=== PATIENT | male | born 1970 | race Two or more races ===

== ENCOUNTER 2024-04-01 21:52 | Inpatient (IN) | payer OTHER ==
[2024-04-01 22:51] VITALS: BMI 18.8
[2024-04-02] MEDS ORDERED: guaiFENesin 600 MG TABLET.ER (FP) PO PRN (00:48)
[2024-04-02] MEDS ORDERED: NALOXONE HCL 0.4 MG/ML VIAL IM PRN (00:48)
[2024-04-02] MEDS ORDERED: POLYETHYLENE GLYCOL (HEALTHYLAX) 3350 17 GM PACKET PO PRN (00:48)
[2024-04-02] MEDS ORDERED: NALOXONE (NARCAN) HCL 4 MG/0.1 ML SPRAY NS PRN (00:48)
[2024-04-02] MEDS ORDERED: IBUPROFEN 400 MG TABLET (FP) PO PRN (00:48)
[2024-04-02] MEDS ORDERED: MAG HYDROX/AL HYDROX/SIMETH 30 ML UNIT-DOSE CUP PO PRN (00:48)
[2024-04-02] MEDS ORDERED: NICOTINE POLACRILEX 2 MG GUM BUC PRN (00:48)
[2024-04-02] MEDS ORDERED: ONDANSETRON *ODT* 4 MG TABLET SL PRN (00:48)
[2024-04-02] MEDS ORDERED: BENZOCAINE/MENTHOL (CHLORASEPTIC ) LOZENGE MM PRN (00:48)
[2024-04-02] MEDS ORDERED: MAGNESIUM HYDROX 2400MG/30ML ORAL SUSPENSION 30 ML CUP PO PRN (00:48)
[2024-04-02] MEDS ORDERED: BENZONATATE 200 MG CAPSULE PO PRN (00:48)
[2024-04-02] MEDS ORDERED: LOPERAMIDE HCL 2 MG CAPSULE PO PRN (00:48)
[2024-04-02] MEDS ORDERED: BISMUTH SUBSALICYLATE 524 MG/30 ML PO PRN (00:48)
[2024-04-02] MEDS: methaDONE HCL 10 MG TABLET (FOR DETOX USE ONLY) PO ONE (01:24)
[2024-04-02] MEDS: IBUPROFEN 600 MG TABLET (FP) PO PRN (01:29)
[2024-04-02] MEDS: PRENATAL VITAMINS W/ FOLIC ACID TABLET (FP) PO SCH (10:25)
[2024-04-02] MEDS: NICOTINE 21 MG/24 HOURS TOPICAL PATCH TD SCH (10:26)
[2024-04-02] MEDS: cloNIDine HCL 0.1 MG TABLET PO PRN (15:17)
[2024-04-02] MEDS: METHOCARBAMOL 500 MG TABLET PO PRN (15:17)
[2024-04-02] MEDS: MELATONIN 5 MG TABLETS PO SCH (22:30)
[2024-04-02] MEDS: THIAMINE 100 MG TABLET PO SCH (22:30)
[2024-04-02] MEDS: hydrOXYzine PAMOATE 25 MG CAPSULE (FP) PO PRN (22:30)
[2024-04-03] MEDS: ACETAMINOPHEN 325 MG TABLET (FP) PO PRN (10:47)
[2024-04-03 11:37] LABS: HEMATOCRIT 35.7 % (35.4-49); HEMOGLOBIN 11.8 GM/dL (11.7-16.9); MCH 28.4 pg (25.7-33.7); MCHC 33.1 g/dl (32.0-35.9); MEAN CELL VOLUME 85.6 fl (80-96); MEAN PLT VOLUME 9.4 fl (7.5-11.1); PLATELET COUNT 225 10^3/uL (134-434); RBC 4.17 M/mm3 (4.00-5.60); RDW 14.9 % (11.9-15.9); WHITE BLOOD COUNT 6.1 K/mm3 (4.0-10.0)
[2024-04-03 11:48] LABS: POTASSIUM 4.8 mmol/L (3.5-5.1)
[2024-04-03 11:57] LABS: ALBUMIN 3.1 g/dl (3.4-5.0)
[2024-04-03] MEDS ORDERED: chlordiazePOXIDE HCL 25 MG CAPSULE PO PRN ×2 (11:57→12:47)
[2024-04-03 11:58] LABS: CALCIUM 8.5 mg/dL (8.5-10.1); CREATININE 0.9 mg/dL (0.55-1.3)
[2024-04-03 11:59] LABS: BLOOD UREA NITROGEN 17.4 mg/dL (7-18)
[2024-04-03 12:02] LABS: BILIRUBIN,TOTAL 0.1 mg/dL (0.2-1); TOT PROT 6.2 g/dl (6.4-8.2)
[2024-04-03] MEDS ORDERED: chlordiazePOXIDE HCL 25 MG CAPSULE PO SCH (17:00)
[2024-04-03] MEDS: DICYCLOMINE HCL 10 MG CAPSULE PO PRN (23:17)
[2024-04-04] MEDS: TRIMETHOBENZAMIDE HCL 200MG/2ML INJ IM ONE (10:49)
[2024-04-04] MEDS: methaDONE HCL 10 MG TABLET (FOR DETOX USE ONLY) PO ONE (10:56)
[2024-04-05] MEDS ORDERED: chlordiazePOXIDE HCL 25 MG CAPSULE PO SCH ×2 (05:00)
[2024-04-05 09:10] VITALS: RESP 16
[2024-04-05 13:03] VITALS: BP 113/66; PULSE 87; TEMP 97.7
[2024-04-06] MEDS ORDERED: chlordiazePOXIDE HCL 10 MG CAPSULE PO PRN ×2
[2024-04-06] MEDS ORDERED: chlordiazePOXIDE HCL 10 MG CAPSULE PO SCH ×2 (05:00)
[2024-04-06] MEDS ORDERED: methaDONE HCL 10 MG TABLET (FOR DETOX USE ONLY) PO ONE (10:00)
[2024-04-07] MEDS ORDERED: chlordiazePOXIDE HCL 10 MG CAPSULE PO SCH ×2 (05:00)
[2024-04-08] MEDS ORDERED: chlordiazePOXIDE HCL 10 MG CAPSULE PO ONE ×2 (05:00)
== END 2024-04-05 15:20 | disposition home or self-care (01) | DRG 773 ==
LOC: YASAS 21:52 → Y3N 23:52
PROVIDERS: ADMIT Allergy & Immunology; ATTEND Surgery
PROC: HZ2ZZZZ Detoxification Services for Substance Abuse Treatment (ICD-10-PCS; principal; 2024-04-01)
DX: F11.23 Opioid dependence with withdrawal (principal); F10.230 Alcohol dependence with withdrawal, uncomplicated; F14.20 Cocaine dependence, uncomplicated; F12.20 Cannabis dependence, uncomplicated; F17.210 Nicotine dependence, cigarettes, uncomplicated; F31.9 Bipolar disorder, unspecified; F41.9 Anxiety disorder, unspecified; J44.9 Chronic obstructive pulmonary disease, unspecified; Z56.0 Unemployment, unspecified; Z59.00 Homelessness unspecified
CPT/HCPCS: 36415; 80053; 80305; 80307; 85027; 86780; 93005; 93010